=== PATIENT | female | born 1990 | race Caucasian/White ===

== ENCOUNTER 2016-10-17 02:18 | Outpatient (CLI) | payer OTHER ==
[~2016-10-17 02:18] MED LIST: BENA25CA2 PO; CETI10TA PO; HYDR50TA70 PO; K-TA1TAB PO; PRED10TA PO; PRED20TA PO; RANI1TAB6 PO
[2016-10-17 02:30] VITALS: BP 132/81
--- NOTE | 2016-10-18 04:49 | HPE ---
DATE OF ADMISSION: 10/17/2016 25-year-old 4, para 3, last menstrual period (LMP) 01/12/2016, estimated date of confinement (EDC) 10/18/2016 at 40 weeks of gestation with [place] [employer] contractions which stopped when she got here. PAST HISTORY: 1. 2007 at 37 weeks spontaneous vaginal delivery 5 pound 15 ounce male, had webbed feet and webbed toes, but went into labor spontaneously. 2. 2009 at 39 weeks spontaneous vaginal delivery 6 pound 15 ounce female, social induction, baby was tongue-tied. 3. In 2014 at 39 weeks social induction, spontaneous vaginal delivery 6 pound male, had a tongue-tie, had a sacral dimple and delayed closure of its patent ductus. Labs show O negative, anti-D positive, HIV negative, hepatitis negative, RPR negative, rubella immune. Varicella immune. Pap normal. Urine negative. Gonorrhea and chlamydia negative. 1-hour glucose 125. GBS negative, declined CF, declined quad screen. On examination, no distress. Symphysis fundus height is 40, vertex, occiput anterior (OA), 2 cm. No loss of fluid or bleeding. Temperature is 97.8, pulse is 93, respirations 18, blood pressure 132/81. Urine 1.005, pH 6, negative, negative, negative. The rest the examination is unremarkable. She is normocephalic, atraumatic. Neck full range of motion. Pupils equal and reactive to light. Distal pulses symmetric. No evidence of deep venous thrombosis (DVT), pulmonary embolus (PE) or superficial phlebitis. Reflexes are normal. No edema. Chest is clear bilaterally to bases. No wheezes or rhonchi. No costovertebral angle (CVA) tenderness. Uterus is nontender. Symphysis fundus height is appropriate. Four quadrant bowel sounds are noted and a category one strip. No rashes, lesions or pruritus. No arthralgia, myalgia. No complaints of cough, wheezes, shortness of breath or dyspnea on exertion. No chest pain. Not bleeding. Neurologically complete. No incontinency, urgency or frequency. No nausea, vomiting, diarrhea or constipation. No diabetic issues. 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 Past medical and surgical history unremarkable. Family history noncontributory. She does not smoke, drink, abuse drugs. She is . There is no domestic violence. In summary, we have a term gestation with [place] [employer] contractions. When she got here they resolved, not in active labor. Precautions were given and the patient was discharged undelivered, has an appointment in 2 days at the clinic.
[2016-10-18] MEDS ORDERED: IBUP-1114 PO (17:21)
[2016-10-18] MEDS ORDERED: ACET50TA PO (17:21)
[2016-10-18] MEDS ORDERED: PRENTAB9 PO (17:22)
[2016-10-18] MEDS ORDERED: COLA100C5 PO (17:22)
== END 2016-10-17 03:30 | disposition home or self-care (01) ==
LOC: M LDO 02:18
PROVIDERS: ATTEND Obstetrics & Gynecology
DX: O47.1 False labor at or after 37 completed weeks of gestation (principal); Z3A.40 40 weeks gestation of pregnancy

== ENCOUNTER 2016-10-17 14:54 | Inpatient (IN) | payer OTHER ==
[~2016-10-17] VITALS: Ht 170.2 cm; Wt 67.0 kg
[2016-10-17 15:08] VITALS: BP 136/83
--- NOTE | 2016-10-17 15:26 | IPNPDOC ---
Text Note Date of Service The patient was seen on 10/17/16. NOTE [id number] @ 1525 SVE- 8/90/-2, SOFT/ANT/VTX see H&P -ADMIT VS,Fishbone, I+O VS, Fishbone, I+O Vital Signs Date Time Temp Pulse Resp B/P (MAP) Pulse Ox O2 Delivery O2 Flow Rate FiO2 10/17/16 15:08 97.6 94 18 136/83 (100) YORDAN MARCUS Oct 17, 2016 15:26
[2016-10-17] MEDS ORDERED: LACTATED RINGER'S 1000 ML IV STA (15:27)
--- NOTE | 2016-10-17 15:45 | HPEPDOC ---
Obstetrical History & Physical General Date of Admission Oct 17, 2016 at 15:24 History of Present Illness 25 yo @ 39+6 by LMP([id number]) and 7+2 wk US on [id number] presents to labor in active labor c/o CTX Q 3-4 min. Denies LOF, VB and DFM. GBS negative. Chief Complaint: Contractions, term Information Provided By: Patient Age: 25 : 4 Term: 3 Pre-term: 0 Abortions: 0 Livin Care Care: Good Care Number of Visits: 12 Dating Final EDC: Oct 18, 2016 Final EDC for Daily Update: Oct 18, 2016 Final EDC by: LMP LMP: Jan 12, 2016 1st Trimester Date: Mar 02, 2016 Weeks + Days: 7.2 Estimated Date of Confinement: Oct 18, 2016 EGA at Admission: 39.6 Antepartum Course Diagnos(e)s 1. Rh negative- Rhogam given @ 28 wks ([id number]) 2. LBP Height (inches): 67 Pre- weight (lbs.): 131 Admission Weight (lbs.): 156 Change in Weight (lbs.): 25 Past Medical History Past Obstetrical History #1: Past Obstetrical History: Multigravida Date of Delivery: Mar 16, 2008 Gestation: 37 Type of Delivery: Spontaneous Vaginal Del. Sex of Infant: Male Weight of Infant (grams): 2693 Complications: No Past Obstetrical History #2: Past Obstetrical History: Multigravida Date of Delivery: Nov 28, 2009 Gestation: 39 Type of Delivery: Spontaneous Vaginal Del. Sex of Infant: Female Weight of Infant (grams): 3147 Complications: No Past Obstetrical History #3: Past Obstetrical History: Multigravida Date of Delivery: August 14, 2014 Gestation: 39 Type of Delivery: Spontaneous Vaginal Del. 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 [employer] History: No pertinent history Past Medical History Surgical History: Appendectomy (2006) Family History Significant Family History: No pertinent family hx Social History Marital Status: Family situation: Spouse/partner home Psychosocial History: No pertinent psych hx * Smoker: non-smoker Alcohol: Denies Drugs: denies Abuse Violence Screening Have you been hit/kicked/slapp: No Have you been sexually assault: No Imunizations Tdap status: current ([id number]) Influenza Status: declined Allergies Coded Allergies: No Known Drug Allergy (Unverified Allergy, Unknown, 07/03/15) Medications No Active Prescriptions or Reported Meds Physical Examination Physical Examination GENERAL: A&O x 3 ABDOMEN: Gravid and non-tender to touch. FETUS: VTX by Herman and HEART RATE: RRR, no m/r/g LUNGS: CTA EXTREMITIES: No edema. No clonus. DTRs +1 EFW- 2900 grams Vital Signs/I&O Vital Signs Date Time Temp Pulse Resp B/P (MAP) Pulse Ox O2 Delivery O2 Flow Rate FiO2 10/17/16 15:08 97.6 94 18 136/83 (100) Laboratory Data CBC/BMP 13.4/12.9/38.8/321 Urine Culture: Other (no growth of clinical significance) Pertinent Laboratoy Data Blood Type: O- RBC Antibody Screen: Negative HIV: Negative Hepatitis B: Negative Hepatitis C: Unknown Rapid Plasma Reagin: Nonreactive Rubella: Immune Varicella: Immune Chlamydia/Gonorrhea: Negative Group B Streptococcus: Negative Quad Screen Test: Declined Cystic Fibrosis: Declined Glucose Tolerance Test: 125 Anatomy Ultrasound Ultrasound Date: Jun 01, 2016 Placenta Location: Anterior Normal Anatomy: Yes Placenta Previa: No Estimated Weight (grams): 336 Steroid Therapy Steroid Therapy: No Vaginal Examination Dilation: 8 cm Effacement: 80+% Station: -2 Cervical Consistency: Soft Cervical Position: Anterior Presentation: Cephalic presentation Position: Vertex (occiput) Assessment Heart Rate (FHR): 140 Variability: Moderate Accelerations: Positive Decelerations: None Tocometer Contractions: Yes Frequency: regular, every 2-5 min. Strength: palpated as strong, resting tone palp/soft Multi-drug resistant Organism: No history of MDRO Assessment/Plan Assessment 25 yo @ 39+6 in active labor, CAT I FHR tracing. GBS negative. Plan Admit and orient. 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 Diet: clear liquid GBS negative Labs and IV per unit protocol Pitocin bolus after delivery with ant shoulder LR bolus 1000 ml, then 125 ml/hr anticipate C-S as appropriate. YORDAN MARCUS CNM Oct 17, 2016 15:45
[2016-10-17] MEDS ORDERED: OXYTOCIN 30 UNITS IN 0.9% NaCl 500ML IV BAG (J2590) As Ordered ONE (15:48)
[2016-10-17 15:59] LABS: MEAN CORPUSCULAR HEMOGLOBIN 25.7 pg (27.0-33.0); MEAN CORPUSCULAR HGB CONC 33.4 g/dl (32.0-36.5); MEAN CORPUSCULAR VOLUME 76.9 fl (80.0-96.0); RED CELL DISTRIBUTION WIDTH 14.1 % (11.5-14.5); WHITE BLOOD COUNT 13.8 K/mm3 (4.0-10.0)
[2016-10-17] MEDS ORDERED: LR 1,000 ML IV SCH (16:00)
[2016-10-17] MEDS ORDERED: ONDANSETRON 4MG/2ML VIAL (J2405) IV PRN (16:15)
[2016-10-17] MEDS ORDERED: DIBUCAINE 1% OINTMENT 30GM TOP PRN (16:15)
[2016-10-17] MEDS ORDERED: MOM 30ML SUSPENSION UDC PO PRN (16:15)
[2016-10-17] MEDS ORDERED: ACETAMINOPHEN 500 MG TAB PO PRN (16:15)
[2016-10-17] MEDS ORDERED: DOCUSATE SODIUM 100 MG CAP PO PRN (16:15)
[2016-10-17] MEDS ORDERED: RHOGAM 300 MCG (1500 IU) INJ (J2790) IM SCH (16:15)
[2016-10-17] MEDS ORDERED: PROMETHAZINE 25 MG TAB PO PRN (16:15)
--- NOTE | 2016-10-17 16:15 | DNPDOC ---
[facility] Delivery Note Delivery Note DATE OF DELIVERY: Oct 17, 2016 at 15:24 PREDELIVERY DIAGNOSIS: 39+6 wks POST DELIVERY DIAGNOSIS: Delivered. PROCEDURE: FILLING OPERATOR: Estephanie Smith CNM ANESTHESIA: none ESTIMATED BLOOD LOSS: 100 mL. FINDINGS: female infant, Score 8/9 ( weight not available at time of delivery documentation) DELIVERY SUMMARY: Patient is a 25 yo G4 n P4004 who was admitted to labor and delivery for active labor. Progressed rapidly to c/c/+2 and a strong desire to push; AROM with meconium noted approx 1 min prior to delivery. Delivery was via of a viable female infant to a clean field; the presented occiput anterior with no nuchal cord noted; anterior shoulder(left) delivered with mild downward traction, then the posterior shoulder delivered with mild upward traction; remainder of corpus delivered spontaneously; placed on mother's abdomen. Bulb suction was performed and initial cleaning completed, delayed cord clamping x 3 minutes, then cord clamped x 2 and cut by FOB; the child had a vigorous cry and was moved to mother's chest for iorr-de-vcey; pitocin was started with delivery of the anterior shoulder; 3 vessel cord and normal placenta were delivered without complications approx 4 minutes later; fundal massage was applied and vaginal vault was swept for clots; vagina and perineum examined; no lacerations noted. Fundus firm at U-1. SQY=846 ml, had 8/9; mother and are bonding well and were stable in the delivery room; anticipate routine PP course. Delivering Provider: QUINN Elizabeth KELLI C. CNM Oct 17, 2016 16:15
[2016-10-17] MEDS ORDERED: OXYTOCIN DRIP 30 UNITS in APPROPRIATE DILUENT 1 EA IV SCH (16:30)
[2016-10-17 18:18] VITALS: BP 136/74
[2016-10-17] MEDS: IBUPROFEN 800 MG TAB PO PRN (18:49)
[2016-10-18 05:35] VITALS: BP 113/59
[2016-10-18] MEDS: IBUPROFEN 800 MG TAB PO PRN ×2 (05:38→18:08)
--- NOTE | 2016-10-18 08:25 | IPNPDOC ---
Progress Note Date of Service The patient was seen on 10/18/16 at 08:17. Progress Note BRIEF SUMMARY OF LABOR AND DELIVERY: Patient is a 25 yo G4 n P4004 s/p of female , 7 pounds 2 ounces LABS AND OTHER LABS ORDERED THIS ADMISSION: Blood type: O and Rh negative, Hepatitis B surface antigen (HBsAG): NR, Rubella immune, Gonorrhea culture (GC) negative, Chlamydia negative SUBJECTIVE: Patient reports she is comfortable. Bleeding moderate, breast- feeding, ambulating without difficulty, pain well controlled, control declines. Flatus present. Voiding without difficulty. OBJECTIVE: PHYSICAL EXAMINATION: VITAL SIGNS: WNL, afebrile CARDIOVASCULAR: RRR, no m/r/g LUNGS: CTA BREAST EXAMINATION: no engorgement, no erythema FUNDUS: Firm at U-2, nontender to massage. PERINEUM: moderate lochia. Intact EXTREMITIES: Bilateral lower extremities, no edema, no erythema ASSESSMENT: 25 yo s/p without laceration. Doing well, day #1. PLAN: Discharge or plans for: [id number] Return for fever, pain or bleeding. control plans: declines Followup plans: 6 wk PP visit @ [facility] Medications at [facility] VS, I&O, 24H, Nguyen Vital Signs/I&O Vital Signs Date Time Temp Pulse Resp B/P (MAP) Pulse Ox O2 Delivery O2 Flow Rate FiO2 10/18/16 05:35 98.3 107 16 113/59 (77) I&O- Last 24 Hours up to 6 AM 10/18/16 06:00 Intake Total 500 ml Output Total 600 ml Balance -100 ml Laboratory Data 24H LABS Laboratory Tests 2 10/17/16 15:39: 10/17/16 15:52: Serology Scanned Report Hepatitis B Testing CBC/BMP Laboratory Tests 10/17/16 15:39 Red Blood Count 5.08, Mean Corpuscular Volume 76.9 L, Mean Corpuscular Hemoglobin 25.7 L, Mean Corpuscular Hemoglobin Concent 33.4, Red Cell Distribution Width 14.1 YORDAN MARCUS CNM Oct 18, 2016 08:25
[2016-10-18] MEDS ORDERED: PRENATAL VITAMINS CHEWABLE TABLET PO SCH (09:00)
[2016-10-18] MEDS ORDERED: IBUP-1114 PO (17:21)
[2016-10-18] MEDS ORDERED: ACET50TA PO (17:21)
[2016-10-18] MEDS ORDERED: PRENTAB9 PO (17:22)
[2016-10-18] MEDS ORDERED: COLA100C5 PO (17:22)
== END 2016-10-18 18:00 | disposition home or self-care (01) | DRG 775 ==
LOC: M LDO 14:54 → M LDI 15:24 → M OBS 17:55
PROVIDERS: ADMIT Midwife; ATTEND Midwife
PROC: 10E0XZZ Delivery of Products of Conception, External Approach (ICD-10-PCS; principal; 2016-10-17)
DX: O62.3 Precipitate labor (principal); O77.0 Labor and delivery complicated by meconium in amniotic fluid; Z3A.39 39 weeks gestation of pregnancy; Z37.0 Single live birth

== ENCOUNTER → 2017-05-16 | Outpatient (CLI) | payer OTHER | LOC: M LRY 11:59 | DX: M53.3 Sacrococcygeal disorders, not elsewhere classified (principal) | CPT/HCPCS: 72220 ==